=== PATIENT | female | born 1990 | race Caucasian/White ===

== ENCOUNTER 2019-02-02 17:42 | Emergency (ER) | payer BC, OTHER ==
[~2019-02-02] VITALS: Ht 154.9 cm; Wt 78.2 kg
[2019-02-02 17:49] VITALS: BP 133/69; PULSE 80; RESP 20; Ht 154.9 cm; Wt 78.2 kg
[2019-02-02] MEDS ORDERED: SODI14.1 TP (19:00)
--- NOTE | 2019-02-04 05:54 | ERD ---
ER Documentation Chief Complaint Chief Complaint nose bleed this am and 35 mins ago; R arm pain/numbness; no bleed now HPI History of Present Illness: 28-year-old female who denies a past medical history coming in today with complaint of nosebleed that occurred earlier in the morning, and occurred again 35 minutes prior to arrival. Patient also reporting right arm pain and the numbness occurred, no longer present.. Patient denies any other associated symptoms. Patient is not currently bleeding. Patient denies chest pain, shortness of breath, palpitations, lightheadedness, weakness At home pharmacological/nonpharmacological treatment for symptoms: Denies Denies social concerns; Denies recent foreign travel ROS All systems reviewed and are negative except as per history of present illness. Medications Home Meds Active Scripts Sodium Chloride/Aloe Vera (Saline Nasal Gel) 14.1 Gm Gel..gram., 14.1 GM TP BID for KEEP NOSE MOIST/PREVENT BLEED for 30 Days, #1 1 Refill Use daily every 3 hours for the first 5 days. Then use every 12 hours in the morning and at night every day. Prov:ARMAAN LANGFORD NP 02/02/19 Allergies Allergies: Coded Allergies: Penicillins (Verified Allergy, Unknown, HIVES, 05/09/15) PMhx/Soc Medical and Surgical Hx: pt denies Surgical Hx History of Surgery: No Anesthesia Reaction: No Hx Neurological Disorder: No Hx Respiratory Disorders: No Hx Cardiac Disorders: No Hx Psychiatric Problems: No Hx Alcohol Use: No Hx Substance Use: No Hx Tobacco Use: No Smoking Status: Never smoker FmHx Family History: diabetes; No coronary disease Physical Exam Vitals Vital Signs Date Temp Pulse Resp B/P (MAP) Pulse Ox O2 O2 Flow FiO2 Time Delivery Rate 02/02/19 98.7 80 20 133/69 98 17:49 (90) Physical Exam Const: No acute distress Head: Atraumatic Eyes: Normal Conjunctiva ENT: Normal External Ears, Nose. Mild erythema to nasal mucosa of left nare. Neck: Full range of motion. No meningismus. Resp: Clear to auscultation bilaterally Cardio: Regular rate and rhythm, no murmurs Abd: Soft, non tender, non distended. Normal bowel sounds Skin: No petechiae or rashes Back: No midline or flank tenderness Ext: No cyanosis, or edema Neur: Awake and alert Psych: Normal Mood and Affect Procedures/MDM ED course includes a thorough examination and history. Low suspicion for life-threatening medical emergency. Otherwise healthy patient presenting with constellation of symptoms likely representing uncomplicated epistaxis as characterized by history, physical exam findings. Patient reassessment 1919: Patient hemodynamically stable. No respiratory distress, otherwise relatively well appearing and nontoxic. Disposition given. Patient educated on diagnoses, prescriptions, follow-up care, return precautions. Strict return precautions given for worsening condition; questions answered discharge. Disposition for discharge with followup in 2 days with PCP/clinic. Departure Diagnosis: Primary Impression: Epistaxis Condition: Stable Patient Instructions: Epistaxis (Adult) Referrals: STUART LEWIS MD Additional Instructions: Thank you very much for allowing us to participate in your care. Your health and safety is our top priority at [facility]. It is important to read all discharge instructions and education provided in your discharge packet. *You NEED to buy a humidifier to keep in your room at nighttime. A coolmist h umidifier will also help with hopefully preventing nosebleeds.* Call your primary care doctor TOMORROW for an appointment during the next 2-4 days and bring all the information and medications prescribed. Have prescriptions filled and follow precisely the directions on the label. If the symptoms get worse and your provider is unavailable, return to the Emergency Department immediately. ARMAAN LANGFORD NP February 04, 2019 05:54
== END 2019-02-02 19:26 | disposition home or self-care (01) ==
LOC: FTE 17:42
DX: R04.0 Epistaxis (principal)
CPT/HCPCS: 99282